=== PATIENT | male | born 1935 | race Caucasian/White ===

== ENCOUNTER 2016-12-20 08:47 | Day surgery (SDC) | payer MEDICARE, OTHER ==
[~2016-12-20] VITALS: Ht 188 cm; Wt 110.0 kg
--- NOTE | ~2016-12-20 | OR ---
ADMIT: 12/20/2016 RM/LOC: [facility] MR#: [id number] [id number] YANMURIEL GALEANO [address] [place] [address] Operative/Delivery Room Report SEX: M AGE: 81 : 1935 SURGERY DATE: 12/20/2016 SURGEON: Hugo Humphrey MD PREOPERATIVE DIAGNOSIS: Rectal bleeding, need for colonoscopy. POSTOPERATIVE DIAGNOSES: 1. Multiple sigmoid diverticula. 2. One small polyp at the cecum. 3. Another polyp, a little worrisome for pathology at 15 cm. PROCEDURE: Colonoscopy with cold biopsy polypectomy of small polyp at the cecum and then snare polypectomy of good portion of this polyp at 15 cm and tattooing just distal to this polyp. ANESTHESIA: MAC anesthesia. ESTIMATED BLOOD LOSS: Less than 5. INDICATION FOR PROCEDURE: Please see H and P. After the risks, benefits, possible complications, and the alternatives had been explained, and informed consent had been obtained, the patient was taken back to the procedure room, underwent sedation. The flexible colonoscope was introduced. Two sets of pictures, in the first set you can see this polyp there at about 15 cm. It was little bit hard, it was right around a bunch of diverticula, and there was a whole bunch of kind of semi solid stool there. I was able to make it by all this, all the way over to the cecum seen in the 3rd picture. Second picture shows this semi-solid stool and there was a fair amount of it kept getting in the way. Over at the cecum, once I got it cleaned out, there was one small polyp. This was removed with couple good bites of cold biopsy forceps. The remainder of the ascending, transverse, and descending colon appeared normal. The sigmoid colon has multiple sigmoid diverticula and then at 15 cm, the 2nd ADMIT: 12/20/2016 RM/LOC: [facility] MR#: [id number] [id number] [id number] MURIEL GRIMM [address] [place] [address] Operative/Delivery Room Report SEX: M AGE: 81 : 1935 set of pictures shows a little better. Once I had things adequately cleaned out, I used a snare and originally was getting around most of this, I just did not like the way it felt. Some of it felt fairly firm at the bottom of it and then kind of fleshy at the top. So worries me a little bit, there maybe pathology in this. I got a couple very good chunks of it removed down to the area, you can see in picture #3 and 4 in the second set. I did suction up and kept some of it in the polyp trap as well. I then tattooed distal to this in 3 different spots around it. The remainder of the lower rectum and rectal exam revealed no other mass or lesion. The scope was removed and the procedure terminated. He tolerated it well and was taken recovery room in stable and satisfactory condition. Hugo Humphrey MD/ shasta JOB #: [id number] CC: Hugo Humphrey, Attending Physician Ivan Elizalde, Family Physician
== END 2016-12-20 14:10 | disposition home or self-care (01) ==
LOC: SSS 08:47
PROC: 0DBH8ZX Excision of Cecum, Via Natural or Artificial Opening Endoscopic, Diagnostic (ICD-10-PCS; principal; 2016-12-20)
PROC: 0DBE8ZX Excision of Large Intestine, Via Natural or Artificial Opening Endoscopic, Diagnostic (ICD-10-PCS; principal; 2016-12-20)
DX: C18.9 Malignant neoplasm of colon, unspecified (principal); D12.0 Benign neoplasm of cecum; K62.5 Hemorrhage of anus and rectum; K57.30 Diverticulosis of large intestine without perforation or abscess without bleeding; J44.9 Chronic obstructive pulmonary disease, unspecified; G47.30 Sleep apnea, unspecified; K21.9 Gastro-esophageal reflux disease without esophagitis; E03.9 Hypothyroidism, unspecified; M81.0 Age-related osteoporosis without current pathological fracture; E78.5 Hyperlipidemia, unspecified; Z98.890 Other specified postprocedural states; Z79.899 Other long term (current) drug therapy; Z87.891 Personal history of nicotine dependence